=== PATIENT | male | born 1965 ===

== ENCOUNTER 2024-08-14 00:27 | Emergency (ER) | payer MEDICAID ==
[2024-08-14] MEDS: Lidocaine 1% 5 ML VIAL INJECT ONE (00:38)
[2024-08-14] MEDS: Bacitracin Oint 1 GM U/D Packet TOP ONE (00:38)
== END 2024-08-14 02:00 ==
LOC: LL.ED 00:27
DX: S31.811A Laceration without foreign body of right buttock, initial encounter (principal); S31.821A Laceration without foreign body of left buttock, initial encounter; Z88.5 Allergy status to narcotic agent; W19.XXXA Unspecified fall, initial encounter; Y92.129 Unspecified place in nursing home as the place of occurrence of the external cause
CPT/HCPCS: 12002; 99284; J2003